=== PATIENT | male | born 1940 | race Caucasian/White ===

== ENCOUNTER 2019-02-15 09:19 | Observation (INO) ==
[2019-02-13 12:41] LABS: Basophils % 0.4 % (0.0-0.8); Eosinophils # 0.2 10*3/uL (0.0-0.87); Eosinophils % 1.7 % (0.00-10.9); Hematocrit 39.3 VOL% (42.0-52.0); Immature Granulocytes % 0.2 %; Immature Granulocytes Absolute 0.02 #; Lymphocytes # 1.5 10*3/uL (1.4-4.0); Lymphocytes % 15.1 % (21.2-54.2); Mean Corpuscular HGB Conc 33.1 GM/DL (32-36); Mean Corpuscular Volume 95.6 FL (87-102); Mean Platelet Volume 9.5 FL (9.6-12.0); Monocytes % 6.2 % (1.7-12.7); Neutrophils % 76.4 % (38.7-73.9); Platelet Count 238 T/CUMM (130-400); Red Blood Count 4.11 MC/CUMM (3.8-5.5); Red Cell Distribution Width 13.2 % (9.3-17.3); White Blood Count 10.2 T/CUMM (4-12)
[2019-02-13 13:11] LABS: Albumin 3.6 G/DL (3.4-5.0); Bilirubin,Total 0.4 MG/DL (0.2-1.0); Calcium 8.9 MG/DL (8.5-10.1); Osmolality,Calculated 270.5 MOS/KG (273-304); Total Protein 7.5 G/DL (6.4-8.3)
[~2019-02-15 09:19] MED LIST: cefTRIAXone 1,000 MG in SYRINGE 1 EACH IV ONE
[2019-02-15] MEDS ORDERED: cefTRIAXone 1,000 MG VIAL ONE (10:17)
[2019-02-15] MEDS ORDERED: GLUCAGON 1 MG VIAL IM PRN (13:23)
[2019-02-15] MEDS ORDERED: DEXTROSE 50% 25 GM/50 ML VIAL IV PRN (13:23)
[2019-02-15 13:34] LABS: Basophils % 0.4 % (0.0-0.8); Eosinophils # 0.2 10*3/uL (0.0-0.87); Eosinophils % 2.3 % (0.00-10.9); Hematocrit 38.7 VOL% (42.0-52.0); Hemoglobin 12.6 GM/DL (14.0-18.0); Immature Granulocytes % 0.4 %; Immature Granulocytes Absolute 0.03 #; Lymphocytes # 1.4 10*3/uL (1.4-4.0); Lymphocytes % 18.3 % (21.2-54.2); Mean Corpuscular HGB Conc 32.6 GM/DL (32-36); Mean Corpuscular Volume 95.8 FL (87-102); Mean Platelet Volume 9.1 FL (9.6-12.0); Monocytes % 6.2 % (1.7-12.7); Neutrophils % 72.4 % (38.7-73.9); Platelet Count 210 T/CUMM (130-400); Red Blood Count 4.04 MC/CUMM (3.8-5.5); Red Cell Distribution Width 13.2 % (9.3-17.3); White Blood Count 7.8 T/CUMM (4-12)
[2019-02-15 13:55] LABS: Albumin 3.3 G/DL (3.4-5.0); Bilirubin,Total 0.6 MG/DL (0.2-1.0); Calcium 9.1 MG/DL (8.5-10.1); Osmolality,Calculated 278.8 MOS/KG (273-304); Total Protein 6.9 G/DL (6.4-8.3)
[2019-02-15 14:22] LABS: Apearance,Urine CLEAR (Clear); Bilirubin,Urine Negative (Negative); Blood, Urine Small mg/dL (Negative); Glucose,Urine (UA) Negative (Negative); Ketones,Urine Negative (Negative); Nitrite,Urine Negative (Negative); Protein,Urine Negative; RBC,Urine 2 /HPF (0-4); Urine Color Straw (Yellow); Urine Specific Gravity 1.005 (1.001-1.035); Urine Urobilinogen < 2.0 EU/DL (0.2-1.0); WBC,Urine 5 /HPF (0-6)
[2019-02-15] MEDS ORDERED: SODIUM CHLORIDE 0.9% 1,000 ML IV SCH (14:30)
[2019-02-15] MEDS: amLODIPine 5 MG TABLET PO SCH (15:48)
[2019-02-15] MEDS: METOPROLOL SUCCINATE XL 50 MG TABLET PO SCH (15:48)
[2019-02-15] MEDS ORDERED: INSULIN LISPRO 100 UNIT/ML SUBCUT SCH (16:30)
[2019-02-15] MEDS: INSULIN LISPRO 100 UNIT/ML SUBCUT SCH ×2 (17:37→20:13)
[2019-02-15] MEDS ORDERED: MORPHINE 4 MG/1 ML VIAL IV ONE (21:22)
[2019-02-15] MEDS ORDERED: ACETAMINOPHEN 325 MG TABLET PO PRN (21:22)
[2019-02-15] MEDS: SODIUM CHLORIDE 0.9% 1,000 ML IV SCH (23:46)
[2019-02-16 04:54] LABS: Basophils % 0.3 % (0.0-0.8); Eosinophils # 0.2 10*3/uL (0.0-0.87); Eosinophils % 1.6 % (0.00-10.9); Hematocrit 38.2 VOL% (42.0-52.0); Hemoglobin 12.9 GM/DL (14.0-18.0); Immature Granulocytes % 0.3 %; Immature Granulocytes Absolute 0.03 #; Lymphocytes # 1.5 10*3/uL (1.4-4.0); Lymphocytes % 12.7 % (21.2-54.2); Mean Corpuscular HGB Conc 33.8 GM/DL (32-36); Mean Corpuscular Volume 93.2 FL (87-102); Mean Platelet Volume 9.6 FL (9.6-12.0); Monocytes % 7.3 % (1.7-12.7); Neutrophils % 77.8 % (38.7-73.9); Platelet Count 239 T/CUMM (130-400); White Blood Count 11.4 T/CUMM (4-12)
[2019-02-16 05:27] LABS: Albumin 3.1 G/DL (3.4-5.0); Bilirubin,Total 0.7 MG/DL (0.2-1.0); Calcium 8.6 MG/DL (8.5-10.1); Osmolality,Calculated 279.7 MOS/KG (273-304); Total Protein 6.7 G/DL (6.4-8.3)
[2019-02-16] MEDS ORDERED: ASPIRIN EC 81 MG TABLET PO SCH (09:00)
[2019-02-16] MEDS ORDERED: SIMVASTATIN 10 MG TABLET PO SCH (09:00)
[2019-02-16] MEDS: METOPROLOL SUCCINATE XL 50 MG TABLET PO SCH (09:52)
[2019-02-16] MEDS: amLODIPine 5 MG TABLET PO SCH (09:52)
[2019-02-16] MEDS: INSULIN LISPRO 100 UNIT/ML SUBCUT SCH ×2 (09:54→11:58)
[2019-02-16 11:51] VITALS: BP 142/61
[2019-02-16] MEDS: SODIUM CHLORIDE 0.9% 1,000 ML IV SCH (11:58)
== END 2019-02-16 12:36 | disposition home or self-care (01) ==
LOC: N.OR 09:19 → N.2E 09:19 → N.SDSINP 09:20 → N.2E 15:14
PROVIDERS: ADMIT Surgery; ATTEND Surgery

== ENCOUNTER 2020-07-01 14:31 | Observation (INO) ==
[2020-07-01 15:31] LABS: Basophils % 0.3 % (0.0-0.8); Eosinophils # 0.1 10*3/uL (0.0-0.87); Eosinophils % 0.4 % (0.00-10.9); Hematocrit 33.9 VOL% (42.0-52.0); Hemoglobin 11.7 GM/DL (14.0-18.0); Immature Granulocytes % 0.5 %; Immature Granulocytes Absolute 0.07 #; Lymphocytes # 0.6 10*3/uL (1.4-4.0); Lymphocytes % 4.5 % (21.2-54.2); Mean Corpuscular HGB Conc 34.5 GM/DL (32-36); Mean Corpuscular Volume 94.2 FL (87-102); Mean Platelet Volume 8.6 FL (9.6-12.0); Monocytes % 4.8 % (1.7-12.7); Neutrophils % 89.5 % (38.7-73.9); Platelet Count 229 T/CUMM (130-400); White Blood Count 14.3 T/CUMM (4-12)
[2020-07-01 15:51] LABS: Albumin 2.6 G/DL (3.4-5.0); Bilirubin,Total 0.6 MG/DL (0.2-1.0); Calcium 8.7 MG/DL (8.5-10.1); Ferritin 137.9 ng/ml (26-388); Lymphocytes 6 % (20-55); Osmolality,Calculated 272.4 MOS/KG (273-304); Segmented Neutrophils 89 % (50-85); Total Cells Counted 100; Total Protein 6.8 G/DL (6.4-8.3)
[2020-07-01 15:52] LABS: Hypochromasia 1+; Microcytosis Slight; Platelet Estimate Adequate
[2020-07-01 17:39] LABS: Bilirubin,Urine Negative (Negative); Blood, Urine Moderate mg/dL (Negative); Glucose,Urine (UA) 150 mg/dL (Negative); Ketones,Urine Negative (Negative); Mucus,Urine Occasional /LPF (Occasional); Nitrite,Urine Negative (Negative); Protein,Urine 100 MG/DL; RBC,Urine 52 /HPF (0-4); Urine Appearance CLEAR (Clear); Urine Color Yellow (Yellow); Urine Specific Gravity 1.015 (1.001-1.035); WBC,Urine 33 /HPF (0-6)
[2020-07-01] MEDS ORDERED: cefTRIAXone 1,000 MG in SODIUM CHLORIDE 0.9% 100 ML IV STA (17:45)
[2020-07-01] MEDS ORDERED: ZALEPLON 5 MG CAPSULE PO PRN (18:06)
[2020-07-01] MEDS ORDERED: LACTULOSE 20 GM/30 ML UDCUP PO PRN (18:06)
[2020-07-01] MEDS ORDERED: diphenhydrAMINE CAP 25 MG CAPSULE PO PRN (18:06)
[2020-07-01] MEDS ORDERED: DEXTROSE 50% 25 GM/50 ML VIAL IV PRN (18:06)
[2020-07-01] MEDS ORDERED: ONDANSETRON 4 MG/2 ML VIAL IV PRN (18:06)
[2020-07-01] MEDS ORDERED: ALBUTEROL 2.5 MG/3 ML NEB RESP TX PRN (18:06)
[2020-07-01] MEDS ORDERED: ACETAMINOPHEN 325 MG TABLET PO PRN (18:06)
[2020-07-01] MEDS ORDERED: NICOTINE 21 MG/24 HR PATCH TRANSDERM PRN (18:06)
[2020-07-01] MEDS ORDERED: ALBUTEROL/IPRATROPIUM 3 ML NEB RESP TX PRN (18:06)
[2020-07-01] MEDS ORDERED: DOCUSATE SODIUM 100 MG CAPSULE PO PRN (18:06)
[2020-07-01] MEDS ORDERED: SIMETHICONE CHEW 125 MG TABLET PO PRN (18:06)
[2020-07-01] MEDS ORDERED: BISACODYL 5 MG TABLET PO PRN (18:06)
[2020-07-01] MEDS ORDERED: ALUMINUM/MAGNES/SIMETH MAX STR 30 ML UDCUP PO PRN (18:06)
[2020-07-01] MEDS ORDERED: guaiFENesin/DM ER 600-30 MG TABLET PO PRN (18:06)
[2020-07-01] MEDS ORDERED: GLUCAGON 1 MG VIAL IM PRN (18:06)
[2020-07-01] MEDS ORDERED: hydrALAZINE 20 MG/1 ML VIAL IV PRN (18:06)
[2020-07-01] MEDS ORDERED: MORPHINE 4 MG/1 ML VIAL IV PRN (18:06)
[2020-07-01] MEDS ORDERED: CALCIUM CARBONATE CHEW 500 MG TABLET PO PRN (18:06)
[2020-07-01] MEDS ORDERED: SODIUM CHLORIDE 0.45% 1,000 ML IV SCH (18:30)
[2020-07-01] MEDS: SERTRALINE 50 MG TABLET PO SCH (22:12)
[2020-07-01] MEDS: INSULIN REGULAR 100 UNIT/ML SUBCUT SCH (22:13)
[2020-07-01] MEDS: ENOXAPARIN 40 MG/0.4 ML SYRINGE SUBCUT SCH (22:13)
[2020-07-01] MEDS: SODIUM CHLORIDE 0.9% 1,000 ML IV SCH (22:15)
[2020-07-01] MEDS: PIPERACILLIN/TAZOBACTAM 3,375 MG in SODIUM CHLORIDE 0.9% 100 ML IV SCH (22:16)
[2020-07-02] MEDS: VANCOMYCIN INJ 1,250 MG in SODIUM CHLORIDE 0.9% 250 ML IV SCH ×2 (00:24→17:13)
[2020-07-02 03:47] LABS: Basophils # 0.1 10*3/uL (0.0-0.2); Basophils % 0.4 % (0.0-0.8); Eosinophils # 0.2 10*3/uL (0.0-0.87); Eosinophils % 1.4 % (0.00-10.9); Hematocrit 30.9 VOL% (42.0-52.0); Hemoglobin 10.4 GM/DL (14.0-18.0); Immature Granulocytes % 0.6 %; Immature Granulocytes Absolute 0.09 #; Lymphocytes # 1.9 10*3/uL (1.4-4.0); Lymphocytes % 13.3 % (21.2-54.2); Mean Corpuscular HGB Conc 33.7 GM/DL (32-36); Mean Corpuscular Volume 95.4 FL (87-102); Mean Platelet Volume 8.9 FL (9.6-12.0); Monocytes % 6.4 % (1.7-12.7); Neutrophils % 77.9 % (38.7-73.9); Platelet Count 223 T/CUMM (130-400); Red Blood Count 3.24 MC/CUMM (3.8-5.5); White Blood Count 14.1 T/CUMM (4-12)
[2020-07-02] MEDS: PIPERACILLIN/TAZOBACTAM 3,375 MG in SODIUM CHLORIDE 0.9% 100 ML IV SCH ×3 (03:50→20:50)
[2020-07-02 04:24] LABS: Albumin 2.2 G/DL (3.4-5.0); Bilirubin,Total 0.7 MG/DL (0.2-1.0); Calcium 8.3 MG/DL (8.5-10.1); Osmolality,Calculated 273.7 MOS/KG (273-304); Risk Ratio 2.83; Thyroid Stimulating Hormone 1.3 uIU/ml (0.358-3.74); VLDL CHOLESTEROL 13.2 MG/DL
[2020-07-02] MEDS: INSULIN REGULAR 100 UNIT/ML SUBCUT SCH ×4 (08:59→20:50)
[2020-07-02] MEDS: PANTOPRAZOLE 40 MG TABLET PO SCH (09:00)
[2020-07-02] MEDS: TAMSULOSIN 0.4 MG CAPSULE PO SCH (09:00)
[2020-07-02] MEDS: FINASTERIDE 5 MG TABLET PO SCH (09:00)
[2020-07-02] MEDS: METOPROLOL SUCCINATE XL 50 MG TABLET PO SCH (09:00)
[2020-07-02] MEDS: lisinopriL 20 MG TABLET PO SCH (09:00)
[2020-07-02] MEDS: SIMVASTATIN 20 MG TABLET PO SCH (09:00)
[2020-07-02] MEDS: predniSONE 20 MG TABLET PO SCH (09:03)
[2020-07-02] MEDS: SERTRALINE 50 MG TABLET PO SCH (20:50)
[2020-07-02] MEDS: ENOXAPARIN 40 MG/0.4 ML SYRINGE SUBCUT SCH (20:50)
[2020-07-02] MEDS: SODIUM CHLORIDE 0.9% 1,000 ML IV SCH (20:55)
[2020-07-03] MEDS: PIPERACILLIN/TAZOBACTAM 3,375 MG in SODIUM CHLORIDE 0.9% 100 ML IV SCH (05:18)
[2020-07-03 05:59] LABS: Basophils % 0.2 % (0.0-0.8); Eosinophils # 0.2 10*3/uL (0.0-0.87); Eosinophils % 1.3 % (0.00-10.9); Hematocrit 33.8 VOL% (42.0-52.0); Hemoglobin 11.7 GM/DL (14.0-18.0); Immature Granulocytes % 0.5 %; Immature Granulocytes Absolute 0.09 #; Lymphocytes # 2.3 10*3/uL (1.4-4.0); Lymphocytes % 12.7 % (21.2-54.2); Mean Corpuscular HGB Conc 34.6 GM/DL (32-36); Mean Corpuscular Volume 93.4 FL (87-102); Monocytes % 6.3 % (1.7-12.7); Platelet Count 276 T/CUMM (130-400); Red Blood Count 3.62 MC/CUMM (3.8-5.5); Red Cell Distribution Width 12.9 % (9.3-17.3); White Blood Count 17.8 T/CUMM (4-12)
[2020-07-03 06:35] LABS: Albumin 2.2 G/DL (3.4-5.0); Bilirubin,Total 0.8 MG/DL (0.2-1.0); Calcium 8.7 MG/DL (8.5-10.1); Osmolality,Calculated 276.7 MOS/KG (273-304); Total Protein 6.6 G/DL (6.4-8.3)
[2020-07-03] MEDS ORDERED: FUROSEMIDE 20 MG/2 ML VIAL IV ONE (08:56)
[2020-07-03] MEDS: predniSONE 20 MG TABLET PO SCH (09:01)
[2020-07-03] MEDS: FINASTERIDE 5 MG TABLET PO SCH (09:01)
[2020-07-03] MEDS: lisinopriL 20 MG TABLET PO SCH (09:01)
[2020-07-03] MEDS: METOPROLOL SUCCINATE XL 50 MG TABLET PO SCH (09:01)
[2020-07-03] MEDS: SIMVASTATIN 20 MG TABLET PO SCH (09:01)
[2020-07-03] MEDS: INSULIN REGULAR 100 UNIT/ML SUBCUT SCH (09:01)
[2020-07-03] MEDS: PANTOPRAZOLE 40 MG TABLET PO SCH (09:01)
[2020-07-03] MEDS: TAMSULOSIN 0.4 MG CAPSULE PO SCH (09:01)
[2020-07-03 11:56] VITALS: BP 175/51
== END 2020-07-03 12:13 | disposition home health service (06) ==
LOC: EDBD → EDUNIT# → N.ED 14:31 → INTOOBSV 18:06 → N.EDINP 18:06 → N.5E 19:48
PROVIDERS: ADMIT Hospitalist; ATTEND Hospitalist

== ENCOUNTER 2020-07-09 13:43 | Inpatient (IN) ==
[2020-07-09] MEDS ORDERED: ALBUTEROL 2.5 MG/3 ML NEB RESP TX STA (14:10)
[2020-07-09 14:36] LABS: Basophils % 0.3 % (0.0-0.8); Eosinophils # 0.1 10*3/uL (0.0-0.87); Eosinophils % 0.8 % (0.00-10.9); Hematocrit 34.6 VOL% (42.0-52.0); Immature Granulocytes % 0.7 %; Immature Granulocytes Absolute 0.11 #; Lymphocytes # 0.6 10*3/uL (1.4-4.0); Lymphocytes % 4.1 % (21.2-54.2); Mean Corpuscular HGB Conc 34.7 GM/DL (32-36); Mean Corpuscular Volume 94.3 FL (87-102); Mean Platelet Volume 8.9 FL (9.6-12.0); Monocytes % 2.6 % (1.7-12.7); Neutrophils % 91.5 % (38.7-73.9); Platelet Count 397 T/CUMM (130-400); Red Blood Count 3.67 MC/CUMM (3.8-5.5); Red Cell Distribution Width 13.2 % (9.3-17.3); White Blood Count 15.1 T/CUMM (4-12)
[2020-07-09 14:39] LABS: Ferritin 196.7 ng/ml (26-388)
[2020-07-09 14:44] LABS: PT Patient Result 10.9 SECS (9.8-11.9); Partial Thromboplastin Time 25.5 SECS (23.9-33.8)
[2020-07-09 14:47] LABS: Albumin 2.3 G/DL (3.4-5.0); Bilirubin,Total 0.5 MG/DL (0.2-1.0); Calcium 8.5 MG/DL (8.5-10.1); Osmolality,Calculated 281.1 MOS/KG (273-304); Total Protein 6.8 G/DL (6.4-8.3)
[2020-07-09] MEDS ORDERED: PIPERACILLIN/TAZOBACTAM 3,375 MG in SODIUM CHLORIDE 0.9% 100 ML IV STA (14:52)
[2020-07-09 15:06] LABS: Bacteria,Urine Occasional /HPF (Few); Bilirubin,Urine Negative (Negative); Blood, Urine Small mg/dL (Negative); Glucose,Urine (UA) >=500 mg/dL (Negative); Ketones,Urine Negative (Negative); Mucus,Urine Occasional /LPF (Occasional); Nitrite,Urine Negative (Negative); Protein,Urine 30 MG/DL; RBC,Urine 32 /HPF (0-4); Squamous Epithelial Cell,Urine Occasional /HPF (0-10); Urine Appearance CLEAR (Clear); Urine Color Yellow (Yellow); Urine Specific Gravity 1.015 (1.001-1.035); WBC,Urine 27 /HPF (0-6)
[2020-07-09 15:24] LABS: Band Neutrophils 3 % (0-10); Lymphocytes 4 % (20-55); Platelet Estimate Normal; Segmented Neutrophils 89 % (50-85); Total Cells Counted 100
[2020-07-09] MEDS ORDERED: hydrALAZINE 20 MG/1 ML VIAL IV PRN (15:48)
[2020-07-09] MEDS ORDERED: ACETAMINOPHEN 325 MG TABLET PO PRN (15:48)
[2020-07-09] MEDS ORDERED: DEXTROSE 50% 25 GM/50 ML VIAL IV PRN (15:48)
[2020-07-09] MEDS ORDERED: GLUCAGON 1 MG VIAL IM PRN (15:48)
[2020-07-09] MEDS ORDERED: PIPERACILLIN/TAZOBACTAM 3,375 MG in SODIUM CHLORIDE 0.9% 100 ML IV SCH (16:00)
[2020-07-09] MEDS: CEFEPIME 1,000 MG in SODIUM CHLORIDE 0.9% 100 ML IV SCH ×2 (16:50→23:36)
[2020-07-09] MEDS: INSULIN REGULAR 100 UNIT/ML SUBCUT SCH ×2 (19:18→21:08)
[2020-07-09] MEDS: ENOXAPARIN 40 MG/0.4 ML SYRINGE SUBCUT SCH (21:07)
[2020-07-09] MEDS: guaiFENesin/DM ER 600-30 MG TABLET PO SCH (21:08)
[2020-07-09] MEDS: VANCOMYCIN INJ 1,250 MG in SODIUM CHLORIDE 0.9% 250 ML IV SCH (22:32)
[2020-07-10 06:00] LABS: Basophils % 0.2 % (0.0-0.8); Eosinophils # 0.4 10*3/uL (0.0-0.87); Eosinophils % 2.6 % (0.00-10.9); Hematocrit 31.1 VOL% (42.0-52.0); Hemoglobin 10.6 GM/DL (14.0-18.0); Immature Granulocytes % 0.7 %; Lymphocytes # 1.4 10*3/uL (1.4-4.0); Lymphocytes % 9.5 % (21.2-54.2); Mean Corpuscular HGB Conc 34.1 GM/DL (32-36); Mean Corpuscular Volume 93.1 FL (87-102); Mean Platelet Volume 8.7 FL (9.6-12.0); Monocytes % 4.8 % (1.7-12.7); Neutrophils % 82.2 % (38.7-73.9); Platelet Count 383 T/CUMM (130-400); Red Blood Count 3.34 MC/CUMM (3.8-5.5); Red Cell Distribution Width 13.1 % (9.3-17.3); White Blood Count 14.9 T/CUMM (4-12)
[2020-07-10 06:26] LABS: Calcium 8.1 MG/DL (8.5-10.1); Osmolality,Calculated 276.7 MOS/KG (273-304)
[2020-07-10] MEDS: INSULIN REGULAR 100 UNIT/ML SUBCUT SCH ×4 (07:14→21:49)
[2020-07-10] MEDS: CEFEPIME 1,000 MG in SODIUM CHLORIDE 0.9% 100 ML IV SCH ×3 (09:01→21:45)
[2020-07-10] MEDS: PANTOPRAZOLE 40 MG TABLET PO SCH (09:02)
[2020-07-10] MEDS: guaiFENesin/DM ER 600-30 MG TABLET PO SCH ×2 (09:02→21:49)
[2020-07-10] MEDS ORDERED: INFLUENZA VIRUS VACCINE 0.5 ML SYRINGE IM ONE (10:00)
[2020-07-10] MEDS ORDERED: PNEUMOCOCCAL VACCINE (13 VALENT) 0.5 ML SYRINGE IM ONE (10:00)
[2020-07-10] MEDS: VANCOMYCIN INJ 1,250 MG in SODIUM CHLORIDE 0.9% 250 ML IV SCH ×2 (11:15→23:00)
[2020-07-10] MEDS: ALBUTEROL/IPRATROPIUM 3 ML NEB RESP TX SCH ×4 (11:41→23:58)
[2020-07-10] MEDS: methylPREDNISolone SOD SUC 40 MG/1 ML VIAL IV SCH ×2 (12:46→21:49)
[2020-07-10] MEDS: METOPROLOL SUCCINATE XL 50 MG TABLET PO SCH (12:47)
[2020-07-10] MEDS: FINASTERIDE 5 MG TABLET PO SCH (12:47)
[2020-07-10] MEDS: lisinopriL 20 MG TABLET PO SCH (12:47)
[2020-07-10 14:57] LABS: ABG Base Excess 2.3 MMOL/L (-2.5-2.5); ABG HCO3 26.5 MMOL/L (20-26); ABG Oxygen Saturation 98.8 % (95-100)
[2020-07-10 15:23] LABS: Calcium 8.2 MG/DL (8.5-10.1)
[2020-07-10] MEDS: metFORMIN 500 MG TABLET PO SCH (18:00)
[2020-07-10] MEDS: glipiZIDE 10 MG TABLET PO SCH (18:00)
[2020-07-10] MEDS: ENOXAPARIN 40 MG/0.4 ML SYRINGE SUBCUT SCH (21:48)
[2020-07-10] MEDS: INSULIN GLARGINE 100 UNIT/ML SUBCUT SCH (21:48)
[2020-07-10] MEDS: SERTRALINE 50 MG TABLET PO SCH (21:49)
[2020-07-10] MEDS: SIMVASTATIN 20 MG TABLET PO SCH (21:49)
[2020-07-11] MEDS: ALBUTEROL/IPRATROPIUM 3 ML NEB RESP TX SCH ×5 (01:57→19:51)
[2020-07-11] MEDS: CEFEPIME 1,000 MG in SODIUM CHLORIDE 0.9% 100 ML IV SCH ×4 (03:30→20:29)
[2020-07-11 05:27] LABS: Basophils % 0.1 % (0.0-0.8); Eosinophils % 0.1 % (0.00-10.9); Hematocrit 29.7 VOL% (42.0-52.0); Hemoglobin 10.2 GM/DL (14.0-18.0); Immature Granulocytes % 0.6 %; Immature Granulocytes Absolute 0.08 #; Lymphocytes # 0.7 10*3/uL (1.4-4.0); Lymphocytes % 4.8 % (21.2-54.2); Mean Corpuscular HGB Conc 34.3 GM/DL (32-36); Mean Corpuscular Volume 93.1 FL (87-102); Monocytes % 1.5 % (1.7-12.7); Neutrophils % 92.9 % (38.7-73.9); Platelet Count 345 T/CUMM (130-400); Red Blood Count 3.19 MC/CUMM (3.8-5.5); Red Cell Distribution Width 13.1 % (9.3-17.3)
[2020-07-11 05:44] LABS: Calcium 8.3 MG/DL (8.5-10.1); Osmolality,Calculated 281.8 MOS/KG (273-304)
[2020-07-11 05:48] LABS: Hypersegmented Neutrophil SLIGHT; Hypochromasia 1+; Lymphocytes 6 % (20-55); Segmented Neutrophils 94 % (50-85); Total Cells Counted 100
[2020-07-11 05:49] LABS: Microcytosis 1+; Platelet Estimate Normal; Polychromasia Slight
[2020-07-11] MEDS: INSULIN REGULAR 100 UNIT/ML SUBCUT SCH ×4 (09:22→20:35)
[2020-07-11] MEDS: methylPREDNISolone SOD SUC 40 MG/1 ML VIAL IV SCH ×2 (09:23→20:28)
[2020-07-11] MEDS: metFORMIN 500 MG TABLET PO SCH ×2 (09:24→16:38)
[2020-07-11] MEDS: glipiZIDE 10 MG TABLET PO SCH ×2 (09:24→16:38)
[2020-07-11] MEDS: FINASTERIDE 5 MG TABLET PO SCH (09:25)
[2020-07-11] MEDS: guaiFENesin/DM ER 600-30 MG TABLET PO SCH ×2 (09:25→20:28)
[2020-07-11] MEDS: METOPROLOL SUCCINATE XL 50 MG TABLET PO SCH (09:25)
[2020-07-11] MEDS: ASPIRIN EC 81 MG TABLET PO SCH (09:25)
[2020-07-11] MEDS: CHOLECALCIFEROL 1,000 UNIT TABLET PO SCH (09:25)
[2020-07-11] MEDS: PANTOPRAZOLE 40 MG TABLET PO SCH (09:25)
[2020-07-11] MEDS: lisinopriL 20 MG TABLET PO SCH (09:25)
[2020-07-11] MEDS: VANCOMYCIN INJ 1,250 MG in SODIUM CHLORIDE 0.9% 250 ML IV SCH (11:04)
[2020-07-11] MEDS: SERTRALINE 50 MG TABLET PO SCH (20:28)
[2020-07-11] MEDS: INSULIN GLARGINE 100 UNIT/ML SUBCUT SCH (20:28)
[2020-07-11] MEDS: SIMVASTATIN 20 MG TABLET PO SCH (20:28)
[2020-07-11] MEDS: TAMSULOSIN 0.4 MG CAPSULE PO SCH (20:28)
[2020-07-11] MEDS: ENOXAPARIN 40 MG/0.4 ML SYRINGE SUBCUT SCH (20:28)
[2020-07-11] MEDS ORDERED: ONDANSETRON 4 MG/2 ML VIAL IV PRN (22:36)
[2020-07-12] MEDS: ALBUTEROL/IPRATROPIUM 3 ML NEB RESP TX SCH ×7 (00:55→23:57)
[2020-07-12] MEDS: CEFEPIME 1,000 MG in SODIUM CHLORIDE 0.9% 100 ML IV SCH ×4 (02:17→20:08)
[2020-07-12 05:48] LABS: Basophils % 0.2 % (0.0-0.8); Eosinophils % 0.1 % (0.00-10.9); Hematocrit 31.4 VOL% (42.0-52.0); Hemoglobin 10.3 GM/DL (14.0-18.0); Immature Granulocytes % 0.5 %; Immature Granulocytes Absolute 0.09 #; Lymphocytes % 5.5 % (21.2-54.2); Mean Corpuscular HGB Conc 32.8 GM/DL (32-36); Mean Corpuscular Volume 94.9 FL (87-102); Mean Platelet Volume 9.3 FL (9.6-12.0); Monocytes % 3.4 % (1.7-12.7); Neutrophils % 90.3 % (38.7-73.9); Platelet Count 353 T/CUMM (130-400); Red Blood Count 3.31 MC/CUMM (3.8-5.5); Red Cell Distribution Width 13.2 % (9.3-17.3); White Blood Count 18.7 T/CUMM (4-12)
[2020-07-12 06:00] LABS: Calcium 8.8 MG/DL (8.5-10.1); Osmolality,Calculated 276.2 MOS/KG (273-304)
[2020-07-12] MEDS: INSULIN REGULAR 100 UNIT/ML SUBCUT SCH ×4 (07:52→20:15)
[2020-07-12] MEDS: ASPIRIN EC 81 MG TABLET PO SCH (08:38)
[2020-07-12] MEDS: CHOLECALCIFEROL 1,000 UNIT TABLET PO SCH (08:38)
[2020-07-12] MEDS: METOPROLOL SUCCINATE XL 50 MG TABLET PO SCH (08:38)
[2020-07-12] MEDS: metFORMIN 500 MG TABLET PO SCH ×2 (08:38→17:02)
[2020-07-12] MEDS: guaiFENesin/DM ER 600-30 MG TABLET PO SCH ×2 (08:39→20:09)
[2020-07-12] MEDS: lisinopriL 20 MG TABLET PO SCH (08:39)
[2020-07-12] MEDS: glipiZIDE 10 MG TABLET PO SCH ×2 (08:39→17:02)
[2020-07-12] MEDS: FINASTERIDE 5 MG TABLET PO SCH (08:39)
[2020-07-12] MEDS: methylPREDNISolone SOD SUC 40 MG/1 ML VIAL IV SCH ×2 (08:40→20:08)
[2020-07-12] MEDS: PANTOPRAZOLE 40 MG TABLET PO SCH (08:40)
[2020-07-12] MEDS: INSULIN GLARGINE 100 UNIT/ML SUBCUT SCH (20:08)
[2020-07-12] MEDS: SIMVASTATIN 20 MG TABLET PO SCH (20:09)
[2020-07-12] MEDS: SERTRALINE 50 MG TABLET PO SCH (20:09)
[2020-07-12] MEDS: TAMSULOSIN 0.4 MG CAPSULE PO SCH (20:09)
[2020-07-12] MEDS: ENOXAPARIN 40 MG/0.4 ML SYRINGE SUBCUT SCH (20:09)
[2020-07-12] MEDS: ZALEPLON 5 MG CAPSULE PO PRN (21:44)
[2020-07-13] MEDS: CEFEPIME 1,000 MG in SODIUM CHLORIDE 0.9% 100 ML IV SCH ×4 (02:12→20:33)
[2020-07-13] MEDS: ALBUTEROL/IPRATROPIUM 3 ML NEB RESP TX SCH ×5 (03:26→23:45)
[2020-07-13 06:56] LABS: Basophils % 0.1 % (0.0-0.8); Eosinophils % 0.1 % (0.00-10.9); Hematocrit 29.7 VOL% (42.0-52.0); Immature Granulocytes % 0.5 %; Immature Granulocytes Absolute 0.07 #; Lymphocytes # 1.1 10*3/uL (1.4-4.0); Lymphocytes % 7.5 % (21.2-54.2); Mean Corpuscular HGB Conc 33.7 GM/DL (32-36); Mean Platelet Volume 9.3 FL (9.6-12.0); Monocytes % 4.1 % (1.7-12.7); Neutrophils % 87.7 % (38.7-73.9); Platelet Count 318 T/CUMM (130-400); Red Blood Count 3.16 MC/CUMM (3.8-5.5); Red Cell Distribution Width 13.4 % (9.3-17.3); White Blood Count 14.1 T/CUMM (4-12)
[2020-07-13 07:13] LABS: Calcium 8.5 MG/DL (8.5-10.1); Osmolality,Calculated 276.8 MOS/KG (273-304)
[2020-07-13] MEDS: INSULIN REGULAR 100 UNIT/ML SUBCUT SCH ×4 (08:23→20:32)
[2020-07-13] MEDS: methylPREDNISolone SOD SUC 40 MG/1 ML VIAL IV SCH ×2 (08:41→20:34)
[2020-07-13] MEDS: glipiZIDE 10 MG TABLET PO SCH ×2 (08:42→17:24)
[2020-07-13] MEDS: ASPIRIN EC 81 MG TABLET PO SCH (08:42)
[2020-07-13] MEDS: PANTOPRAZOLE 40 MG TABLET PO SCH (08:42)
[2020-07-13] MEDS: CHOLECALCIFEROL 1,000 UNIT TABLET PO SCH (08:42)
[2020-07-13] MEDS: lisinopriL 20 MG TABLET PO SCH (08:42)
[2020-07-13] MEDS: guaiFENesin/DM ER 600-30 MG TABLET PO SCH ×2 (08:42→20:35)
[2020-07-13] MEDS: metFORMIN 500 MG TABLET PO SCH ×2 (08:42→17:24)
[2020-07-13] MEDS: FINASTERIDE 5 MG TABLET PO SCH (08:42)
[2020-07-13] MEDS: METOPROLOL SUCCINATE XL 50 MG TABLET PO SCH (08:43)
[2020-07-13] MEDS: INSULIN GLARGINE 100 UNIT/ML SUBCUT SCH (20:34)
[2020-07-13] MEDS: ENOXAPARIN 40 MG/0.4 ML SYRINGE SUBCUT SCH (20:35)
[2020-07-13] MEDS: SERTRALINE 50 MG TABLET PO SCH (20:35)
[2020-07-13] MEDS: TAMSULOSIN 0.4 MG CAPSULE PO SCH (20:39)
[2020-07-13] MEDS: SIMVASTATIN 20 MG TABLET PO SCH (20:39)
[2020-07-13] MEDS: ZALEPLON 5 MG CAPSULE PO PRN (23:48)
[2020-07-14] MEDS: CEFEPIME 1,000 MG in SODIUM CHLORIDE 0.9% 100 ML IV SCH ×4 (02:27→20:38)
[2020-07-14 04:29] LABS: ABG Base Excess 4.5 MMOL/L (-2.5-2.5); ABG HCO3 27.8 MMOL/L (20-26); ABG Oxygen Saturation 95.8 % (95-100); ABG PCO2 36.7 MM HG (35-48); ABG PH 7.498 (7.35-7.45); ABG PO2 79.3 MM HG (80-95); Allen Test Positive; Pt O2 Delivery Device Other
[2020-07-14 05:58] LABS: Basophils % 0.1 % (0.0-0.8); Eosinophils % 0.3 % (0.00-10.9); Hematocrit 32.1 VOL% (42.0-52.0); Hemoglobin 10.5 GM/DL (14.0-18.0); Immature Granulocytes % 0.6 %; Immature Granulocytes Absolute 0.09 #; Lymphocytes # 1.2 10*3/uL (1.4-4.0); Lymphocytes % 7.6 % (21.2-54.2); Mean Corpuscular HGB Conc 32.7 GM/DL (32-36); Mean Corpuscular Volume 93.6 FL (87-102); Mean Platelet Volume 9.2 FL (9.6-12.0); Monocytes % 4.9 % (1.7-12.7); Neutrophils % 86.5 % (38.7-73.9); Platelet Count 323 T/CUMM (130-400); Red Blood Count 3.43 MC/CUMM (3.8-5.5); Red Cell Distribution Width 13.2 % (9.3-17.3); White Blood Count 15.2 T/CUMM (4-12)
[2020-07-14 06:22] LABS: Calcium 8.6 MG/DL (8.5-10.1); Osmolality,Calculated 278.7 MOS/KG (273-304)
[2020-07-14] MEDS: ALBUTEROL/IPRATROPIUM 3 ML NEB RESP TX SCH ×5 (08:00→23:40)
[2020-07-14] MEDS: INSULIN REGULAR 100 UNIT/ML SUBCUT SCH ×4 (10:02→20:33)
[2020-07-14] MEDS: CHOLECALCIFEROL 1,000 UNIT TABLET PO SCH (10:03)
[2020-07-14] MEDS: glipiZIDE 10 MG TABLET PO SCH ×2 (10:03→17:12)
[2020-07-14] MEDS: METOPROLOL SUCCINATE XL 50 MG TABLET PO SCH (10:03)
[2020-07-14] MEDS: ASPIRIN EC 81 MG TABLET PO SCH (10:04)
[2020-07-14] MEDS: lisinopriL 20 MG TABLET PO SCH (10:05)
[2020-07-14] MEDS: guaiFENesin/DM ER 600-30 MG TABLET PO SCH ×2 (10:06→20:30)
[2020-07-14] MEDS: metFORMIN 500 MG TABLET PO SCH ×2 (10:06→17:12)
[2020-07-14] MEDS: PANTOPRAZOLE 40 MG TABLET PO SCH (10:07)
[2020-07-14] MEDS: FINASTERIDE 5 MG TABLET PO SCH (10:07)
[2020-07-14] MEDS: methylPREDNISolone SOD SUC 40 MG/1 ML VIAL IV SCH ×2 (10:08→20:34)
[2020-07-14] MEDS: TAMSULOSIN 0.4 MG CAPSULE PO SCH (20:30)
[2020-07-14] MEDS: SIMVASTATIN 20 MG TABLET PO SCH (20:30)
[2020-07-14] MEDS: ENOXAPARIN 40 MG/0.4 ML SYRINGE SUBCUT SCH (20:31)
[2020-07-14] MEDS: INSULIN GLARGINE 100 UNIT/ML SUBCUT SCH (20:32)
[2020-07-14] MEDS: SERTRALINE 50 MG TABLET PO SCH (20:38)
[2020-07-15] MEDS: CEFEPIME 1,000 MG in SODIUM CHLORIDE 0.9% 100 ML IV SCH ×4 (03:10→21:36)
[2020-07-15] MEDS: ALBUTEROL/IPRATROPIUM 3 ML NEB RESP TX SCH ×5 (03:26→20:26)
[2020-07-15 05:39] LABS: Basophils % 0.1 % (0.0-0.8); Eosinophils # 0.1 10*3/uL (0.0-0.87); Eosinophils % 0.4 % (0.00-10.9); Hemoglobin 10.5 GM/DL (14.0-18.0); Immature Granulocytes % 0.6 %; Immature Granulocytes Absolute 0.09 #; Lymphocytes # 1.3 10*3/uL (1.4-4.0); Lymphocytes % 7.7 % (21.2-54.2); Mean Corpuscular HGB Conc 33.9 GM/DL (32-36); Mean Corpuscular Volume 94.2 FL (87-102); Mean Platelet Volume 9.1 FL (9.6-12.0); Monocytes % 4.7 % (1.7-12.7); Neutrophils % 86.5 % (38.7-73.9); Platelet Count 286 T/CUMM (130-400); Red Blood Count 3.29 MC/CUMM (3.8-5.5); Red Cell Distribution Width 13.3 % (9.3-17.3); White Blood Count 16.3 T/CUMM (4-12)
[2020-07-15 06:12] LABS: Calcium 8.7 MG/DL (8.5-10.1)
[2020-07-15] MEDS: CHOLECALCIFEROL 1,000 UNIT TABLET PO SCH (08:32)
[2020-07-15] MEDS: metFORMIN 500 MG TABLET PO SCH ×2 (08:32→17:15)
[2020-07-15] MEDS: PANTOPRAZOLE 40 MG TABLET PO SCH (08:33)
[2020-07-15] MEDS: METOPROLOL SUCCINATE XL 50 MG TABLET PO SCH (08:33)
[2020-07-15] MEDS: FINASTERIDE 5 MG TABLET PO SCH (08:33)
[2020-07-15] MEDS: ASPIRIN EC 81 MG TABLET PO SCH (08:33)
[2020-07-15] MEDS: glipiZIDE 10 MG TABLET PO SCH ×2 (08:33→17:15)
[2020-07-15] MEDS: lisinopriL 20 MG TABLET PO SCH (08:35)
[2020-07-15] MEDS: methylPREDNISolone SOD SUC 40 MG/1 ML VIAL IV SCH ×2 (08:36→21:30)
[2020-07-15] MEDS: NYSTATIN 500,000 UNIT/5 ML UDCUP SWISH/SWAL SCH ×4 (08:40→21:42)
[2020-07-15] MEDS: INSULIN REGULAR 100 UNIT/ML SUBCUT SCH ×4 (08:40→21:31)
[2020-07-15] MEDS: guaiFENesin/DM ER 600-30 MG TABLET PO SCH ×2 (08:40→21:30)
[2020-07-15] MEDS: TAMSULOSIN 0.4 MG CAPSULE PO SCH (21:30)
[2020-07-15] MEDS: SIMVASTATIN 20 MG TABLET PO SCH (21:30)
[2020-07-15] MEDS: ENOXAPARIN 40 MG/0.4 ML SYRINGE SUBCUT SCH (21:31)
[2020-07-15] MEDS: INSULIN GLARGINE 100 UNIT/ML SUBCUT SCH (21:31)
[2020-07-15] MEDS: SERTRALINE 50 MG TABLET PO SCH (21:42)
[2020-07-15] MEDS: ZALEPLON 5 MG CAPSULE PO PRN (21:43)
[2020-07-16] MEDS: ALBUTEROL/IPRATROPIUM 3 ML NEB RESP TX SCH ×8 (00:48→23:44)
[2020-07-16] MEDS: CEFEPIME 1,000 MG in SODIUM CHLORIDE 0.9% 100 ML IV SCH (03:59)
[2020-07-16 05:11] LABS: Basophils % 0.1 % (0.0-0.8); Eosinophils # 0.1 10*3/uL (0.0-0.87); Eosinophils % 0.5 % (0.00-10.9); Hematocrit 32.6 VOL% (42.0-52.0); Hemoglobin 10.9 GM/DL (14.0-18.0); Immature Granulocytes % 0.6 %; Immature Granulocytes Absolute 0.08 #; Lymphocytes # 0.9 10*3/uL (1.4-4.0); Lymphocytes % 5.9 % (21.2-54.2); Mean Corpuscular HGB Conc 33.4 GM/DL (32-36); Mean Corpuscular Volume 93.9 FL (87-102); Mean Platelet Volume 9.6 FL (9.6-12.0); Monocytes % 3.1 % (1.7-12.7); Neutrophils % 89.8 % (38.7-73.9); Platelet Count 300 T/CUMM (130-400); Red Blood Count 3.47 MC/CUMM (3.8-5.5); Red Cell Distribution Width 13.4 % (9.3-17.3); White Blood Count 14.4 T/CUMM (4-12)
[2020-07-16 05:29] LABS: Calcium 8.3 MG/DL (8.5-10.1)
[2020-07-16] MEDS: INSULIN REGULAR 100 UNIT/ML SUBCUT SCH ×4 (08:41→21:45)
[2020-07-16] MEDS: lisinopriL 20 MG TABLET PO SCH (09:07)
[2020-07-16] MEDS: NYSTATIN 500,000 UNIT/5 ML UDCUP SWISH/SWAL SCH ×4 (09:07→21:45)
[2020-07-16] MEDS: ASPIRIN EC 81 MG TABLET PO SCH (09:08)
[2020-07-16] MEDS: FINASTERIDE 5 MG TABLET PO SCH (09:08)
[2020-07-16] MEDS: METOPROLOL SUCCINATE XL 50 MG TABLET PO SCH (09:08)
[2020-07-16] MEDS: CHOLECALCIFEROL 1,000 UNIT TABLET PO SCH (09:08)
[2020-07-16] MEDS: glipiZIDE 10 MG TABLET PO SCH ×2 (09:08→16:49)
[2020-07-16] MEDS: metFORMIN 500 MG TABLET PO SCH ×2 (09:08→16:49)
[2020-07-16] MEDS: guaiFENesin/DM ER 600-30 MG TABLET PO SCH ×2 (09:08→21:44)
[2020-07-16] MEDS: PANTOPRAZOLE 40 MG TABLET PO SCH (09:08)
[2020-07-16] MEDS: methylPREDNISolone SOD SUC 40 MG/1 ML VIAL IV SCH ×2 (09:11→21:44)
[2020-07-16] MEDS: TAMSULOSIN 0.4 MG CAPSULE PO SCH (21:44)
[2020-07-16] MEDS: SIMVASTATIN 20 MG TABLET PO SCH (21:44)
[2020-07-16] MEDS: SERTRALINE 50 MG TABLET PO SCH (21:44)
[2020-07-16] MEDS: ENOXAPARIN 40 MG/0.4 ML SYRINGE SUBCUT SCH (21:44)
[2020-07-16] MEDS: INSULIN GLARGINE 100 UNIT/ML SUBCUT SCH (21:44)
[2020-07-16] MEDS: ZALEPLON 5 MG CAPSULE PO PRN (21:50)
[2020-07-17] MEDS: ALBUTEROL/IPRATROPIUM 3 ML NEB RESP TX SCH ×6 (03:07→23:20)
[2020-07-17 04:08] LABS: Basophils % 0.1 % (0.0-0.8); Eosinophils % 0.2 % (0.00-10.9); Hematocrit 34.3 VOL% (42.0-52.0); Hemoglobin 11.3 GM/DL (14.0-18.0); Immature Granulocytes % 0.7 %; Lymphocytes # 0.5 10*3/uL (1.4-4.0); Lymphocytes % 3.5 % (21.2-54.2); Mean Corpuscular HGB Conc 32.9 GM/DL (32-36); Mean Corpuscular Volume 94.8 FL (87-102); Mean Platelet Volume 9.6 FL (9.6-12.0); Monocytes % 2.3 % (1.7-12.7); Neutrophils % 93.2 % (38.7-73.9); Platelet Count 304 T/CUMM (130-400); Red Blood Count 3.62 MC/CUMM (3.8-5.5); Red Cell Distribution Width 13.7 % (9.3-17.3); White Blood Count 14.6 T/CUMM (4-12)
[2020-07-17 04:25] LABS: Calcium 8.6 MG/DL (8.5-10.1); Osmolality,Calculated 282.2 MOS/KG (273-304)
[2020-07-17 04:36] LABS: Hypochromasia 1+; Lymphocytes 3 % (20-55); Microcytosis 1+; Platelet Estimate Adequate; Segmented Neutrophils 96 % (50-85); Total Cells Counted 100
[2020-07-17 04:37] LABS: Ovalocytes Slight
[2020-07-17] MEDS: METOPROLOL SUCCINATE XL 50 MG TABLET PO SCH (08:25)
[2020-07-17] MEDS: glipiZIDE 10 MG TABLET PO SCH ×2 (08:25→16:38)
[2020-07-17] MEDS: NYSTATIN 500,000 UNIT/5 ML UDCUP SWISH/SWAL SCH ×4 (08:25→20:45)
[2020-07-17] MEDS: lisinopriL 20 MG TABLET PO SCH (08:26)
[2020-07-17] MEDS: ASPIRIN EC 81 MG TABLET PO SCH (08:26)
[2020-07-17] MEDS: PANTOPRAZOLE 40 MG TABLET PO SCH (08:26)
[2020-07-17] MEDS: CHOLECALCIFEROL 1,000 UNIT TABLET PO SCH (08:26)
[2020-07-17] MEDS: metFORMIN 500 MG TABLET PO SCH ×2 (08:26→16:38)
[2020-07-17] MEDS: FINASTERIDE 5 MG TABLET PO SCH (08:26)
[2020-07-17] MEDS: guaiFENesin/DM ER 600-30 MG TABLET PO SCH ×2 (08:26→20:45)
[2020-07-17] MEDS: methylPREDNISolone SOD SUC 40 MG/1 ML VIAL IV SCH ×2 (08:26→20:45)
[2020-07-17] MEDS: INSULIN REGULAR 100 UNIT/ML SUBCUT SCH ×4 (08:27→20:46)
[2020-07-17] MEDS: ENOXAPARIN 40 MG/0.4 ML SYRINGE SUBCUT SCH (20:45)
[2020-07-17] MEDS: SIMVASTATIN 20 MG TABLET PO SCH (20:45)
[2020-07-17] MEDS: SERTRALINE 50 MG TABLET PO SCH (20:45)
[2020-07-17] MEDS: TAMSULOSIN 0.4 MG CAPSULE PO SCH (20:45)
[2020-07-17] MEDS: INSULIN GLARGINE 100 UNIT/ML SUBCUT SCH (20:45)
[2020-07-17] MEDS: ZALEPLON 5 MG CAPSULE PO PRN (23:08)
[2020-07-18] MEDS: ALBUTEROL/IPRATROPIUM 3 ML NEB RESP TX SCH ×6 (03:37→23:44)
[2020-07-18 04:06] LABS: Basophils % 0.1 % (0.0-0.8); Eosinophils # 0.1 10*3/uL (0.0-0.87); Eosinophils % 0.4 % (0.00-10.9); Hematocrit 33.8 VOL% (42.0-52.0); Hemoglobin 11.1 GM/DL (14.0-18.0); Immature Granulocytes % 0.6 %; Immature Granulocytes Absolute 0.09 #; Lymphocytes # 0.7 10*3/uL (1.4-4.0); Lymphocytes % 4.8 % (21.2-54.2); Mean Corpuscular HGB Conc 32.8 GM/DL (32-36); Mean Corpuscular Volume 94.4 FL (87-102); Mean Platelet Volume 9.8 FL (9.6-12.0); Monocytes % 2.5 % (1.7-12.7); Neutrophils % 91.6 % (38.7-73.9); Platelet Count 259 T/CUMM (130-400); Red Blood Count 3.58 MC/CUMM (3.8-5.5); Red Cell Distribution Width 13.5 % (9.3-17.3); White Blood Count 14.6 T/CUMM (4-12)
[2020-07-18 04:26] LABS: Calcium 8.4 MG/DL (8.5-10.1)
[2020-07-18 04:41] LABS: Lymphocytes 3 % (20-55); Segmented Neutrophils 96 % (50-85); Total Cells Counted 100
[2020-07-18 04:42] LABS: Giant Platelets Few; Hypochromasia 1+; Platelet Estimate Normal; Polychromasia Few
[2020-07-18] MEDS: INSULIN REGULAR 100 UNIT/ML SUBCUT SCH ×4 (08:33→20:15)
[2020-07-18] MEDS: CHOLECALCIFEROL 1,000 UNIT TABLET PO SCH (08:34)
[2020-07-18] MEDS: lisinopriL 20 MG TABLET PO SCH (08:34)
[2020-07-18] MEDS: PANTOPRAZOLE 40 MG TABLET PO SCH (08:35)
[2020-07-18] MEDS: FINASTERIDE 5 MG TABLET PO SCH (08:35)
[2020-07-18] MEDS: METOPROLOL SUCCINATE XL 50 MG TABLET PO SCH (08:35)
[2020-07-18] MEDS: guaiFENesin/DM ER 600-30 MG TABLET PO SCH ×2 (08:35→20:16)
[2020-07-18] MEDS: glipiZIDE 10 MG TABLET PO SCH ×2 (08:35→17:46)
[2020-07-18] MEDS: methylPREDNISolone SOD SUC 40 MG/1 ML VIAL IV SCH ×2 (08:35→20:15)
[2020-07-18] MEDS: metFORMIN 500 MG TABLET PO SCH ×2 (08:35→17:46)
[2020-07-18] MEDS: ASPIRIN EC 81 MG TABLET PO SCH (08:35)
[2020-07-18] MEDS: NYSTATIN 500,000 UNIT/5 ML UDCUP SWISH/SWAL SCH (08:42)
[2020-07-18] MEDS: FLUCONAZOLE 100 MG TABLET PO SCH (12:34)
[2020-07-18] MEDS: INSULIN GLARGINE 100 UNIT/ML SUBCUT SCH (20:15)
[2020-07-18] MEDS: SIMVASTATIN 20 MG TABLET PO SCH (20:16)
[2020-07-18] MEDS: TAMSULOSIN 0.4 MG CAPSULE PO SCH (20:16)
[2020-07-18] MEDS: SERTRALINE 50 MG TABLET PO SCH (20:16)
[2020-07-18] MEDS: ENOXAPARIN 40 MG/0.4 ML SYRINGE SUBCUT SCH (20:16)
[2020-07-18] MEDS: ZALEPLON 5 MG CAPSULE PO PRN (23:20)
[2020-07-19] MEDS: ALBUTEROL/IPRATROPIUM 3 ML NEB RESP TX SCH ×5 (03:24→19:30)
[2020-07-19 03:57] LABS: Basophils % 0.1 % (0.0-0.8); Eosinophils % 0.1 % (0.00-10.9); Hematocrit 34.5 VOL% (42.0-52.0); Hemoglobin 11.4 GM/DL (14.0-18.0); Immature Granulocytes % 0.8 %; Immature Granulocytes Absolute 0.11 #; Lymphocytes # 0.7 10*3/uL (1.4-4.0); Lymphocytes % 4.8 % (21.2-54.2); Mean Corpuscular Volume 94.3 FL (87-102); Mean Platelet Volume 9.7 FL (9.6-12.0); Monocytes % 2.2 % (1.7-12.7); Platelet Count 271 T/CUMM (130-400); Red Blood Count 3.66 MC/CUMM (3.8-5.5); Red Cell Distribution Width 13.7 % (9.3-17.3); White Blood Count 14.3 T/CUMM (4-12)
[2020-07-19 04:13] LABS: Calcium 8.9 MG/DL (8.5-10.1); Osmolality,Calculated 279.1 MOS/KG (273-304)
[2020-07-19 04:42] LABS: Lymphocytes 6 % (20-55); Platelet Estimate Normal; Segmented Neutrophils 93 % (50-85); Total Cells Counted 100
[2020-07-19 04:43] LABS: Hypochromasia Slight
[2020-07-19] MEDS: METOPROLOL SUCCINATE XL 50 MG TABLET PO SCH (08:59)
[2020-07-19] MEDS: glipiZIDE 10 MG TABLET PO SCH ×2 (08:59→17:06)
[2020-07-19] MEDS: guaiFENesin/DM ER 600-30 MG TABLET PO SCH ×2 (08:59→20:49)
[2020-07-19] MEDS: PANTOPRAZOLE 40 MG TABLET PO SCH (08:59)
[2020-07-19] MEDS: ASPIRIN EC 81 MG TABLET PO SCH (08:59)
[2020-07-19] MEDS: metFORMIN 500 MG TABLET PO SCH ×2 (08:59→17:06)
[2020-07-19] MEDS: lisinopriL 20 MG TABLET PO SCH (09:00)
[2020-07-19] MEDS: CHOLECALCIFEROL 1,000 UNIT TABLET PO SCH (09:00)
[2020-07-19] MEDS: FINASTERIDE 5 MG TABLET PO SCH (09:00)
[2020-07-19] MEDS: FLUCONAZOLE 100 MG TABLET PO SCH (09:01)
[2020-07-19] MEDS: INSULIN REGULAR 100 UNIT/ML SUBCUT SCH ×4 (09:01→20:50)
[2020-07-19] MEDS: methylPREDNISolone SOD SUC 40 MG/1 ML VIAL IV SCH ×2 (11:04→20:51)
[2020-07-19] MEDS: SERTRALINE 50 MG TABLET PO SCH (20:49)
[2020-07-19] MEDS: ZALEPLON 5 MG CAPSULE PO PRN (20:49)
[2020-07-19] MEDS: SIMVASTATIN 20 MG TABLET PO SCH (20:49)
[2020-07-19] MEDS: TAMSULOSIN 0.4 MG CAPSULE PO SCH (20:49)
[2020-07-19] MEDS: INSULIN GLARGINE 100 UNIT/ML SUBCUT SCH (20:50)
[2020-07-19] MEDS: ENOXAPARIN 40 MG/0.4 ML SYRINGE SUBCUT SCH (20:51)
[2020-07-20] MEDS: ALBUTEROL/IPRATROPIUM 3 ML NEB RESP TX SCH ×6 (00:26→20:10)
[2020-07-20 04:25] LABS: Basophils % 0.1 % (0.0-0.8); Eosinophils % 0.1 % (0.00-10.9); Hematocrit 34.5 VOL% (42.0-52.0); Hemoglobin 11.6 GM/DL (14.0-18.0); Immature Granulocytes % 0.9 %; Immature Granulocytes Absolute 0.14 #; Lymphocytes # 0.7 10*3/uL (1.4-4.0); Lymphocytes % 4.6 % (21.2-54.2); Mean Corpuscular HGB Conc 33.6 GM/DL (32-36); Mean Corpuscular Volume 93.8 FL (87-102); Mean Platelet Volume 9.5 FL (9.6-12.0); Monocytes % 1.8 % (1.7-12.7); Neutrophils % 92.5 % (38.7-73.9); Platelet Count 262 T/CUMM (130-400); Red Blood Count 3.68 MC/CUMM (3.8-5.5); Red Cell Distribution Width 13.8 % (9.3-17.3); White Blood Count 15.1 T/CUMM (4-12)
[2020-07-20 05:02] LABS: Calcium 8.9 MG/DL (8.5-10.1)
[2020-07-20 05:13] LABS: Eosinophils 1 % (0-10); Hypochromasia 1+; Lymphocytes 4 % (20-55); Segmented Neutrophils 95 % (50-85); Total Cells Counted 100
[2020-07-20 05:14] LABS: Microcytosis 1+; Platelet Estimate Normal
[2020-07-20] MEDS: ASPIRIN EC 81 MG TABLET PO SCH (09:02)
[2020-07-20] MEDS: PANTOPRAZOLE 40 MG TABLET PO SCH (09:02)
[2020-07-20] MEDS: CHOLECALCIFEROL 1,000 UNIT TABLET PO SCH (09:02)
[2020-07-20] MEDS: METOPROLOL SUCCINATE XL 50 MG TABLET PO SCH (09:02)
[2020-07-20] MEDS: FLUCONAZOLE 100 MG TABLET PO SCH (09:02)
[2020-07-20] MEDS: glipiZIDE 10 MG TABLET PO SCH ×2 (09:02→17:02)
[2020-07-20] MEDS: metFORMIN 500 MG TABLET PO SCH ×2 (09:02→17:01)
[2020-07-20] MEDS: guaiFENesin/DM ER 600-30 MG TABLET PO SCH ×2 (09:02→21:45)
[2020-07-20] MEDS: methylPREDNISolone SOD SUC 40 MG/1 ML VIAL IV SCH (09:03)
[2020-07-20] MEDS: FINASTERIDE 5 MG TABLET PO SCH (09:03)
[2020-07-20] MEDS: CHLORHEXIDINE 0.12% ORAL RINSE 60 ML BOTTLE SWISH/SPIT SCH ×2 (09:03→21:45)
[2020-07-20] MEDS: lisinopriL 20 MG TABLET PO SCH (09:03)
[2020-07-20] MEDS: INSULIN REGULAR 100 UNIT/ML SUBCUT SCH ×4 (09:55→21:43)
[2020-07-20] MEDS: INSULIN GLARGINE 100 UNIT/ML SUBCUT SCH (21:43)
[2020-07-20] MEDS: ZALEPLON 5 MG CAPSULE PO PRN (21:45)
[2020-07-20] MEDS: SERTRALINE 50 MG TABLET PO SCH (21:45)
[2020-07-20] MEDS: TAMSULOSIN 0.4 MG CAPSULE PO SCH (21:45)
[2020-07-20] MEDS: ENOXAPARIN 40 MG/0.4 ML SYRINGE SUBCUT SCH (21:45)
[2020-07-20] MEDS: SIMVASTATIN 20 MG TABLET PO SCH (21:45)
[2020-07-21] MEDS: ALBUTEROL/IPRATROPIUM 3 ML NEB RESP TX SCH ×7 (00:27→23:15)
[2020-07-21 05:46] LABS: Basophils % 0.2 % (0.0-0.8); Eosinophils # 0.3 10*3/uL (0.0-0.87); Eosinophils % 1.9 % (0.00-10.9); Hematocrit 36.7 VOL% (42.0-52.0); Hemoglobin 11.9 GM/DL (14.0-18.0); Immature Granulocytes % 0.7 %; Lymphocytes # 2.4 10*3/uL (1.4-4.0); Lymphocytes % 15.9 % (21.2-54.2); Mean Corpuscular HGB Conc 32.4 GM/DL (32-36); Mean Corpuscular Volume 95.6 FL (87-102); Mean Platelet Volume 9.6 FL (9.6-12.0); Monocytes % 5.5 % (1.7-12.7); Neutrophils % 75.8 % (38.7-73.9); Platelet Count 244 T/CUMM (130-400); Red Blood Count 3.84 MC/CUMM (3.8-5.5); Red Cell Distribution Width 13.8 % (9.3-17.3); White Blood Count 15.1 T/CUMM (4-12)
[2020-07-21] MEDS: INSULIN REGULAR 100 UNIT/ML SUBCUT SCH ×4 (09:12→20:36)
[2020-07-21] MEDS: ASPIRIN EC 81 MG TABLET PO SCH (09:14)
[2020-07-21] MEDS: lisinopriL 20 MG TABLET PO SCH (09:14)
[2020-07-21] MEDS: CHOLECALCIFEROL 1,000 UNIT TABLET PO SCH (09:14)
[2020-07-21] MEDS: guaiFENesin/DM ER 600-30 MG TABLET PO SCH ×2 (09:14→20:34)
[2020-07-21] MEDS: glipiZIDE 10 MG TABLET PO SCH ×2 (09:14→16:05)
[2020-07-21] MEDS: FINASTERIDE 5 MG TABLET PO SCH (09:14)
[2020-07-21] MEDS: metFORMIN 500 MG TABLET PO SCH ×2 (09:15→16:05)
[2020-07-21] MEDS: FLUCONAZOLE 100 MG TABLET PO SCH (09:15)
[2020-07-21] MEDS: PANTOPRAZOLE 40 MG TABLET PO SCH (09:15)
[2020-07-21] MEDS: METOPROLOL SUCCINATE XL 50 MG TABLET PO SCH (09:15)
[2020-07-21] MEDS: CHLORHEXIDINE 0.12% ORAL RINSE 60 ML BOTTLE SWISH/SPIT SCH ×2 (09:16→21:34)
[2020-07-21] MEDS ORDERED: DEXTROSE 50% 25 GM/50 ML VIAL IV PRN (16:00)
[2020-07-21] MEDS: SIMVASTATIN 20 MG TABLET PO SCH (20:34)
[2020-07-21] MEDS: TAMSULOSIN 0.4 MG CAPSULE PO SCH (20:34)
[2020-07-21] MEDS: ZALEPLON 5 MG CAPSULE PO PRN (20:34)
[2020-07-21] MEDS: ENOXAPARIN 40 MG/0.4 ML SYRINGE SUBCUT SCH (20:34)
[2020-07-21] MEDS: SERTRALINE 50 MG TABLET PO SCH (20:34)
[2020-07-21] MEDS: INSULIN GLARGINE 100 UNIT/ML SUBCUT SCH (20:36)
[2020-07-22] MEDS: ALBUTEROL/IPRATROPIUM 3 ML NEB RESP TX SCH ×3 (04:10→12:30)
[2020-07-22 05:55] LABS: Basophils % 0.1 % (0.0-0.8); Eosinophils # 0.5 10*3/uL (0.0-0.87); Eosinophils % 3.3 % (0.00-10.9); Hematocrit 36.2 VOL% (42.0-52.0); Immature Granulocytes % 0.6 %; Immature Granulocytes Absolute 0.08 #; Lymphocytes # 1.7 10*3/uL (1.4-4.0); Lymphocytes % 12.6 % (21.2-54.2); Mean Corpuscular HGB Conc 33.1 GM/DL (32-36); Mean Corpuscular Volume 94.8 FL (87-102); Monocytes % 6.9 % (1.7-12.7); Neutrophils % 76.5 % (38.7-73.9); Platelet Count 242 T/CUMM (130-400); Red Blood Count 3.82 MC/CUMM (3.8-5.5); Red Cell Distribution Width 14.1 % (9.3-17.3); White Blood Count 13.5 T/CUMM (4-12)
[2020-07-22 06:22] LABS: Osmolality,Calculated 280.7 MOS/KG (273-304)
[2020-07-22] MEDS ORDERED: predniSONE 20 MG TABLET PO SCH (09:00)
[2020-07-22] MEDS: INSULIN REGULAR 100 UNIT/ML SUBCUT SCH ×2 (09:27→12:09)
[2020-07-22] MEDS: METOPROLOL SUCCINATE XL 50 MG TABLET PO SCH (09:40)
[2020-07-22] MEDS: glipiZIDE 10 MG TABLET PO SCH (09:52)
[2020-07-22] MEDS: FLUCONAZOLE 100 MG TABLET PO SCH (09:52)
[2020-07-22] MEDS: ASPIRIN EC 81 MG TABLET PO SCH (09:52)
[2020-07-22] MEDS: metFORMIN 500 MG TABLET PO SCH (09:52)
[2020-07-22] MEDS: FINASTERIDE 5 MG TABLET PO SCH (09:53)
[2020-07-22] MEDS: CHOLECALCIFEROL 1,000 UNIT TABLET PO SCH (09:53)
[2020-07-22] MEDS: guaiFENesin/DM ER 600-30 MG TABLET PO SCH (09:53)
[2020-07-22] MEDS: CHLORHEXIDINE 0.12% ORAL RINSE 60 ML BOTTLE SWISH/SPIT SCH (09:53)
[2020-07-22] MEDS: PANTOPRAZOLE 40 MG TABLET PO SCH (09:53)
[2020-07-22 15:39] VITALS: BP 130/45
[2020-07-23] MEDS ORDERED: TISSUE ADHESIVE 1 EACH APPLICATOR TOP ONE (13:15)
== END 2020-07-22 15:52 | disposition swing bed (61) | DRG 193 ==
LOC: EDUNIT# → N.ED 13:43 → N.EDINP 15:27 → SUATTDRO 15:27 → N.5E 19:37
PROVIDERS: ADMIT Internal Medicine; ATTEND Family Medicine

== ENCOUNTER 2020-07-30 00:34 | Inpatient (IN) ==
[2020-07-30] MEDS ORDERED: SODIUM CHLORIDE 0.9% 500 ML IV STA ×2 (00:50→02:02)
[2020-07-30] MEDS ORDERED: ASPIRIN 325 MG TABLET PO STA (00:50)
[2020-07-30] MEDS ORDERED: methylPREDNISolone SOD SUC 125 MG/2 ML VIAL IV STA (00:53)
[2020-07-30 01:30] LABS: ABG Base Excess -1.8 MMOL/L (-2.5-2.5); ABG HCO3 22.9 MMOL/L (20-26); ABG Oxygen Saturation 99.1 % (95-100); ABG PH 7.485 (7.35-7.45); Allen Test Positive
[2020-07-30 01:38] LABS: Basophils % 0.1 % (0.0-0.8); Eosinophils # 0.1 10*3/uL (0.0-0.87); Eosinophils % 0.2 % (0.00-10.9); Hematocrit 37.1 VOL% (42.0-52.0); Hemoglobin 12.5 GM/DL (14.0-18.0); Immature Granulocytes % 0.9 %; Immature Granulocytes Absolute 0.19 #; Lymphocytes # 0.5 10*3/uL (1.4-4.0); Lymphocytes % 2.3 % (21.2-54.2); Mean Corpuscular HGB Conc 33.7 GM/DL (32-36); Mean Corpuscular Volume 92.8 FL (87-102); Mean Platelet Volume 9.9 FL (9.6-12.0); Monocytes % 2.6 % (1.7-12.7); Neutrophils % 93.9 % (38.7-73.9); Platelet Count 160 T/CUMM (130-400); Red Cell Distribution Width 14.2 % (9.3-17.3); White Blood Count 21.2 T/CUMM (4-12)
[2020-07-30 01:46] LABS: PT Patient Result 10.4 SECS (9.8-11.9)
[2020-07-30] MEDS ORDERED: ALBUTEROL/IPRATROPIUM 3 ML NEB RESP TX STA (01:47)
[2020-07-30] MEDS ORDERED: VANCOMYCIN INJ 1,000 MG in SODIUM CHLORIDE 0.9% 250 ML IV STA (01:50)
[2020-07-30] MEDS ORDERED: CEFEPIME 1,000 MG in SODIUM CHLORIDE 0.9% 100 ML IV STA (01:50)
[2020-07-30 01:56] LABS: Alanine Aminotransferase 29 U/L (16-61); Albumin 2.3 G/DL (3.4-5.0); Alkaline Phosphatase 166 U/L (45-117); Aspartate Amino Transferase 15 U/L (0-37); Blood Urea Nitrogen 53 MG/DL (7-18); Calcium 8.6 MG/DL (8.5-10.1); Estimated Glom Filtration Rate 30 ML/MIN; Glucose 96 MG/DL (74-106); Osmolality,Calculated 279.4 MOS/KG (273-304); Troponin I < 0.015 NG/ML (0.00-0.045)
[2020-07-30] MEDS ORDERED: ENOXAPARIN 80 MG/0.8 ML SYRINGE SUBCUT STA (02:01)
[2020-07-30] MEDS ORDERED: GLUCAGON 1 MG VIAL IM PRN ×2 (02:38)
[2020-07-30] MEDS ORDERED: DEXTROSE 50% 25 GM/50 ML VIAL IV PRN ×2 (02:38)
[2020-07-30] MEDS ORDERED: AZITHROMYCIN INJ 500 MG in SODIUM CHLORIDE 0.9% 250 ML IV SCH (03:00)
[2020-07-30 03:17] LABS: Band Neutrophils 3 % (0-10); Lymphocytes 4 % (20-55); Platelet Estimate Normal; Segmented Neutrophils 89 % (50-85); Total Cells Counted 100
[2020-07-30 03:56] LABS: Bacteria,Urine Many /HPF (Few); Glucose,Urine (UA) 150 mg/dL (Negative); Ketones,Urine Negative (Negative); Nitrite,Urine Negative (Negative); Protein,Urine 100 MG/DL; RBC,Urine 57 /HPF (0-4); Urine Appearance Cloudy (Clear); Urine Color Brown (Yellow); WBC,Urine 74 /HPF (0-6)
[2020-07-30 03:57] LABS: Bilirubin,Urine Negative (Negative); Blood, Urine Large mg/dL (Negative); Urine Urobilinogen 0.2 EU/DL (0.2-1.0)
[2020-07-30 04:18] LABS: ABG Base Excess -1.1 MMOL/L (-2.5-2.5); ABG HCO3 23.5 MMOL/L (20-26); ABG Oxygen Saturation 99.7 % (95-100); ABG PCO2 29.5 MM HG (35-48); ABG PH 7.474 (7.35-7.45); ABG TCO2 19.5 MMOL/L (23-27); Allen Test Positive; Pt O2 Delivery Device BIPAP
[2020-07-30] MEDS: SODIUM CHLORIDE 0.9% 1,000 ML IV SCH ×3 (05:22→21:40)
[2020-07-30 06:38] LABS: Basophils % 0.1 % (0.0-0.8); Hematocrit 30.7 VOL% (42.0-52.0); Hemoglobin 10.4 GM/DL (14.0-18.0); Immature Granulocytes % 1.1 %; Immature Granulocytes Absolute 0.25 #; Lymphocytes # 0.3 10*3/uL (1.4-4.0); Lymphocytes % 1.5 % (21.2-54.2); Mean Corpuscular HGB Conc 33.9 GM/DL (32-36); Mean Corpuscular Volume 91.9 FL (87-102); Mean Platelet Volume 9.6 FL (9.6-12.0); Monocytes % 1.2 % (1.7-12.7); Neutrophils % 96.1 % (38.7-73.9); Platelet Count 140 T/CUMM (130-400); Red Blood Count 3.34 MC/CUMM (3.8-5.5); Red Cell Distribution Width 14.5 % (9.3-17.3); White Blood Count 21.9 T/CUMM (4-12)
[2020-07-30 07:14] LABS: Band Neutrophils 1 % (0-10); Hypochromasia 1+; Lymphocytes 3 % (20-55); Microcytosis 1+; Platelet Estimate Normal; Segmented Neutrophils 96 % (50-85); Total Cells Counted 100
[2020-07-30] MEDS: ALBUTEROL/IPRATROPIUM 3 ML NEB RESP TX SCH ×3 (07:50→19:42)
[2020-07-30] MEDS: methylPREDNISolone SOD SUC 40 MG/1 ML VIAL IV SCH ×2 (08:12→16:25)
[2020-07-30] MEDS: cefTRIAXone 1,000 MG in SYRINGE 1 EACH IV SCH (08:12)
[2020-07-30] MEDS: ENOXAPARIN 30 MG/0.3 ML SYRINGE SUBCUT SCH (08:13)
[2020-07-30] MEDS: PANTOPRAZOLE 40 MG TABLET PO SCH (08:13)
[2020-07-30] MEDS: AZITHROMYCIN 250 MG TABLET PO SCH (08:13)
[2020-07-30] MEDS: INSULIN LISPRO 100 UNIT/ML SUBCUT SCH ×4 (09:35→21:40)
[2020-07-31] MEDS: ALBUTEROL/IPRATROPIUM 3 ML NEB RESP TX SCH ×4 (01:25→19:30)
[2020-07-31] MEDS: SODIUM CHLORIDE 0.9% 1,000 ML IV SCH ×3 (02:20→11:03)
[2020-07-31] MEDS: MORPHINE 4 MG/1 ML VIAL IV PRN ×3 (02:22→20:19)
[2020-07-31] MEDS: methylPREDNISolone SOD SUC 40 MG/1 ML VIAL IV SCH ×2 (02:27→09:04)
[2020-07-31 03:27] LABS: Basophils % 0.1 % (0.0-0.8); Hematocrit 27.8 VOL% (42.0-52.0); Hemoglobin 8.9 GM/DL (14.0-18.0); Immature Granulocytes % 1.1 %; Immature Granulocytes Absolute 0.16 #; Lymphocytes # 0.2 10*3/uL (1.4-4.0); Lymphocytes % 1.5 % (21.2-54.2); Mean Corpuscular Volume 96.2 FL (87-102); Mean Platelet Volume 10.1 FL (9.6-12.0); Monocytes % 2.7 % (1.7-12.7); Neutrophils % 94.6 % (38.7-73.9); Platelet Count 119 T/CUMM (130-400); Red Blood Count 2.89 MC/CUMM (3.8-5.5); Red Cell Distribution Width 14.4 % (9.3-17.3); White Blood Count 14.5 T/CUMM (4-12)
[2020-07-31 03:44] LABS: Calcium 7.5 MG/DL (8.5-10.1); Osmolality,Calculated 292.4 MOS/KG (273-304)
[2020-07-31 07:07] LABS: Lymphocytes 1 % (20-55); Platelet Estimate Normal; Segmented Neutrophils 99 % (50-85); Total Cells Counted 100
[2020-07-31 07:08] LABS: Spherocytes Slight
[2020-07-31 07:09] LABS: Schistocytes Slight
[2020-07-31] MEDS: cefTRIAXone 1,000 MG in SYRINGE 1 EACH IV SCH (09:04)
[2020-07-31] MEDS: ENOXAPARIN 30 MG/0.3 ML SYRINGE SUBCUT SCH (09:05)
[2020-07-31] MEDS: INSULIN LISPRO 100 UNIT/ML SUBCUT SCH ×4 (09:05→22:18)
[2020-07-31] MEDS: PANTOPRAZOLE 40 MG TABLET PO SCH (09:05)
[2020-07-31] MEDS: AZITHROMYCIN 250 MG TABLET PO SCH (09:05)
[2020-07-31] MEDS ORDERED: LEVOFLOXACIN INJ 500 MG in PREMIX 1 EACH IV SCH (10:00)
[2020-07-31] MEDS ORDERED: methylPREDNISolone SOD SUC 40 MG/1 ML VIAL IV SCH (11:30)
[2020-08-01] MEDS: ALBUTEROL/IPRATROPIUM 3 ML NEB RESP TX SCH (00:01)
[2020-08-01] MEDS: MORPHINE 4 MG/1 ML VIAL IV PRN (00:30)
[2020-08-01 07:01] VITALS: BP 175/71
== END 2020-08-01 05:15 | disposition expired | DRG 871 ==
LOC: EDUNIT# → EDBD → N.ED 00:34 → N.EDINP 02:38 → N.CC 04:29 → N.3E 07-31 14:40 → N.ICU 08-01 04:59
PROVIDERS: ADMIT Internal Medicine; ATTEND Internal Medicine